=== PATIENT | female | born 1935 | race Caucasian/White ===

== ENCOUNTER → 2021-09-27 15:01 | Outpatient (BNVA) | payer MEDICARE, OTHER, SELFPAY | PROVIDERS: Family Provider Internal Medicine; Visit Provider Internal Medicine | DX: I48.19 Other persistent atrial fibrillation (principal); I10 Essential (primary) hypertension; I34.0 Nonrheumatic mitral (valve) insufficiency | CPT/HCPCS: 99214 ==

== ENCOUNTER → 2021-10-29 14:17 | Outpatient (BNVA) | payer MEDICARE, OTHER, SELFPAY | PROVIDERS: Family Provider Internal Medicine; Visit Provider Emergency Medicine | DX: R68.89 Other general symptoms and signs (principal); J00 Acute nasopharyngitis [common cold]; J40 Bronchitis, not specified as acute or chronic | CPT/HCPCS: 87400; 87635 ==

== ENCOUNTER → 2022-01-31 14:15 | Outpatient (BNVA) | payer MEDICARE, OTHER, SELFPAY | PROVIDERS: Family Provider Internal Medicine; Visit Provider Otolaryngology | DX: H90.0 Conductive hearing loss, bilateral (principal); H61.23 Impacted cerumen, bilateral | CPT/HCPCS: 69210; 99203 ==

== ENCOUNTER → 2022-06-14 14:02 | Outpatient (BNVA) | payer MEDICARE, OTHER, SELFPAY | PROVIDERS: Family Provider Internal Medicine; Visit Provider Otolaryngology | DX: H61.23 Impacted cerumen, bilateral (principal) | CPT/HCPCS: 69210; 99212 ==

== ENCOUNTER → 2022-10-03 15:01 | Outpatient (BNVA) | payer MEDICARE, OTHER, SELFPAY | PROVIDERS: Family Provider Internal Medicine; Visit Provider Internal Medicine | DX: I48.19 Other persistent atrial fibrillation (principal); I10 Essential (primary) hypertension; I34.0 Nonrheumatic mitral (valve) insufficiency | CPT/HCPCS: 99214 ==

== ENCOUNTER → 2022-10-11 13:09 | Outpatient (BNVA) | payer MEDICARE, OTHER, SELFPAY | PROVIDERS: Family Provider Internal Medicine; Visit Provider Otolaryngology | DX: H90.0 Conductive hearing loss, bilateral (principal); H61.23 Impacted cerumen, bilateral; H60.542 Acute eczematoid otitis externa, left ear | CPT/HCPCS: 69210; 99213 ==

== ENCOUNTER → 2022-12-11 13:04 | Outpatient (BNVA) | payer MEDICARE, OTHER, SELFPAY | PROVIDERS: Family Provider Internal Medicine; Visit Provider Dermatology | DX: L57.8 Other skin changes due to chronic exposure to nonionizing radiation (principal); D69.2 Other nonthrombocytopenic purpura; L57.0 Actinic keratosis; L56.8 Other specified acute skin changes due to ultraviolet radiation | CPT/HCPCS: 17000; 17003; 99213 ==

== ENCOUNTER → 2023-02-19 13:16 | Outpatient (BNVA) | payer MEDICARE, OTHER, SELFPAY | PROVIDERS: Family Provider Internal Medicine; Visit Provider Otolaryngology | DX: H60.542 Acute eczematoid otitis externa, left ear (principal); H90.0 Conductive hearing loss, bilateral; H61.23 Impacted cerumen, bilateral | CPT/HCPCS: 69210; 99213 ==

== ENCOUNTER → 2023-03-13 13:59 | Outpatient (BNVA) | payer MEDICARE, OTHER, SELFPAY | PROVIDERS: Family Provider Internal Medicine; Visit Provider Dermatology | DX: L56.8 Other specified acute skin changes due to ultraviolet radiation (principal); D69.2 Other nonthrombocytopenic purpura | CPT/HCPCS: 17000; 99213 ==

== ENCOUNTER → 2023-04-22 12:15 | Outpatient (BNVA) | payer MEDICARE, OTHER, SELFPAY | PROVIDERS: Family Provider Internal Medicine; Visit Provider Nurse Practitioner Family | DX: R10.9 Unspecified abdominal pain (principal); N30.00 Acute cystitis without hematuria; J06.9 Acute upper respiratory infection, unspecified | CPT/HCPCS: 81000; 87086 ==

== ENCOUNTER → 2023-07-17 14:18 | Outpatient (BNVA) | payer MEDICARE, OTHER, SELFPAY | PROVIDERS: Family Provider Internal Medicine; Visit Provider Dermatology | DX: L56.8 Other specified acute skin changes due to ultraviolet radiation (principal) | CPT/HCPCS: 17000 ==

== ENCOUNTER → 2023-07-24 13:06 | Outpatient (BNVA) | payer MEDICARE, OTHER, SELFPAY | PROVIDERS: Family Provider Internal Medicine; Visit Provider Otolaryngology | DX: H61.23 Impacted cerumen, bilateral (principal); H60.542 Acute eczematoid otitis externa, left ear | CPT/HCPCS: 69210; 99212 ==

== ENCOUNTER → 2023-09-17 13:22 | Outpatient (BNVA) | payer MEDICARE, OTHER, SELFPAY | PROVIDERS: Family Provider Internal Medicine; Visit Provider Dermatology | DX: D37.01 Neoplasm of uncertain behavior of lip (principal); L56.8 Other specified acute skin changes due to ultraviolet radiation | CPT/HCPCS: 40490; 99213 ==

== ENCOUNTER → 2023-10-02 13:06 | Outpatient (BNVA) | payer MEDICARE, OTHER, SELFPAY | PROVIDERS: Family Provider Internal Medicine; Visit Provider Internal Medicine | DX: I48.19 Other persistent atrial fibrillation (principal); I10 Essential (primary) hypertension; I34.0 Nonrheumatic mitral (valve) insufficiency | CPT/HCPCS: 99214 ==

== ENCOUNTER → 2024-02-12 14:37 | Outpatient (BNVA) | payer MEDICARE, OTHER, SELFPAY | PROVIDERS: Family Provider Internal Medicine; PCP Internal Medicine; Visit Provider Dermatology | DX: L57.8 Other skin changes due to chronic exposure to nonionizing radiation (principal); D18.01 Hemangioma of skin and subcutaneous tissue; L82.1 Other seborrheic keratosis | CPT/HCPCS: 17000; 99213 ==

== ENCOUNTER → 2024-04-08 12:56 | Outpatient (BNVA) | payer MEDICARE, OTHER, SELFPAY | PROVIDERS: Family Provider Internal Medicine; PCP Internal Medicine; Visit Provider Dermatology | DX: L40.8 Other psoriasis (principal); L56.8 Other specified acute skin changes due to ultraviolet radiation | CPT/HCPCS: 17000; 99214 ==

== ENCOUNTER → 2024-07-17 14:01 | Outpatient (BNVA) | payer MEDICARE, OTHER, SELFPAY | PROVIDERS: Family Provider Internal Medicine; PCP Internal Medicine; Visit Provider Dermatology | DX: L56.8 Other specified acute skin changes due to ultraviolet radiation (principal) | CPT/HCPCS: 17000 ==

== ENCOUNTER → 2024-09-18 12:29 | Outpatient (BNVA) | payer MEDICARE, OTHER, SELFPAY | PROVIDERS: Family Provider Internal Medicine; PCP Internal Medicine; Visit Provider Dermatology | DX: F42.4 Excoriation (skin-picking) disorder (principal); L56.8 Other specified acute skin changes due to ultraviolet radiation | CPT/HCPCS: 17000; 99212 ==

== ENCOUNTER → 2024-10-06 14:58 | Outpatient (BNVA) | payer MEDICARE, OTHER, SELFPAY | PROVIDERS: Family Provider Internal Medicine; PCP Internal Medicine; Visit Provider Internal Medicine | DX: I48.19 Other persistent atrial fibrillation (principal); I10 Essential (primary) hypertension; I34.0 Nonrheumatic mitral (valve) insufficiency | CPT/HCPCS: 99214 ==

== ENCOUNTER → 2024-12-22 11:38 | Outpatient (BNVA) | payer MEDICARE, OTHER, SELFPAY | PROVIDERS: Family Provider Internal Medicine; PCP Internal Medicine; Visit Provider Dermatology | DX: L82.1 Other seborrheic keratosis (principal); L21.8 Other seborrheic dermatitis; L82.0 Inflamed seborrheic keratosis; L53.8 Other specified erythematous conditions; L29.89 Other pruritus; L56.8 Other specified acute skin changes due to ultraviolet radiation | CPT/HCPCS: 17000; 17110; 99214 ==